=== PATIENT | male | born 1985 | race Hispanic/Latino ===

== ENCOUNTER 2016-08-18 07:56 | Emergency (ER) | payer OTHER ==
[~2016-08-18] VITALS: Ht 188 cm; Wt 104.3 kg
[~2016-08-18 07:56] MED LIST: CIPRO 500MG TA500 MG PO; ROBITUSSIN W/CO10 ML PO; ZITHROMAX Z-PA250 M1 PO
[2016-08-18 08:53] VITALS: BP 124/80
--- NOTE | 2016-08-18 10:35 | ED EYE COMPLAINT ---
History of Present Illness General Chief Complaint: Eye Problems Stated Complaint: SWOLLEN RT EYE Source: patient Exam Limitations: no limitations Vital Signs & Intake/Output Vital Signs & Intake/Output Vital Signs Date Time Temp Pulse Resp B/P Pulse O2 O2 Flow FiO2 Ox Delivery Rate 08/18 0853 98.4 83 18 124/80 99 Room Air Allergies Coded Allergies: MDX - No Known Drug Allergies - Nkd (NO KNOWN DRUG ALLERGIES - NKDA) (09/28/14) Reconcile Medications Azithromycin (Zithromax Z-Manuel) 250 MG CAP 1 DP PO AD . 2 the first day followed by 1 for days 2-5 Ciprofloxacin (Cipro) 500 MG TABLET 1 TAB PO BID FOOT PUNCTURE Polytrim (Polytrim Eye Drops) 10,000 UNIT-1 MG/ML DROPS 1 GTT OD Q6 infection 1 week Prednisolone Acetate (Pred Forte) 1 % DROPS.SUSP 1 GTT OD 4 TIMES/DAY episcleritis for 1 week, right eye Robitussin AC (Guaifenesin-Codeine Syrup) 200 MG-20 MG/10 ML LIQUID 10 ML PO Q6HR PRN COUGH Triage Note: C/O R EYE REDNESS, SWELLING, DRAIANGE SINCE LAST PM. Triage Nurses Notes Reviewed? yes HPI: PRESSURE TO R EYE LAST NIGHT, SWOLLEN R EYELID AND MILD YELLOW DISCHARGE FROM THE EYE TODAY. NO PAIN WITH EOM. NO L EYE SX. NO VISUAL CHANGE. THERE IS MODERATE SWELLING. NO FB SENSATION OR INJURY. SX ARE MODEATGE, NO FEVER, NO VISUAL CHANGE. NO CONTACTS (PATITO GALLARDO) Past History Travel History Traveled to [place] past 21 day No Medical History Any Pertinent Medical History? see below for history Neurological: NONE EENT: NONE Cardiovascular: NONE Respiratory: NONE Gastrointestinal: NONE Hepatic: NONE Renal: NONE Musculoskeletal: osteoarthritis Psychiatric: NONE Endocrine: NONE Blood Disorders: NONE Cancer(s): NONE REVENUE ANALYST/Reproductive: NONE Tetanus Vaccine: 12/05/14 Surgical History Surgical History: none Psychosocial History What is your primary language Telugu Tobacco Use: Never used ETOH Use: occasional use Family History Hx Contributory? No (PATITO GALLARDO) Review of Systems Review of Systems Constitutional: Reports: see HPI. Ear: Reports: no symptoms. Nose: Reports: no symptoms. Mouth: Reports: no symptoms. Throat: Reports: no symptoms. Respiratory: Reports: no symptoms. Cardiovascular: Reports: no symptoms. GI: Reports: no symptoms. Genitourinary: Reports: no symptoms. Musculoskeletal: Reports: no symptoms. Skin: Reports: no symptoms. Neurological/Psychological: Reports: no symptoms. Hematologic/Endocrine: Reports: no symptoms. Immunologic/Allergic: Reports: no symptoms. All Other Systems: Reviewed and Negative (PATITO GALLARDO) Physical Exam General Appearance: well developed/nourished General Inspection: normal inspection General Inspection: periorbital swelling Physical Exam Comments: Well-developed well-nourished no apparent distress. HEENT: Right-sided moderate lateral superior eyelid swelling, no significant erythema.no pain with eye motion EXtraocular motion intact Fluorescein stain to the right eyes negative, everted right superior eyelid shows no foreign body however there is swelling of the episclera and inner eyelid of the superior and lateral eyelid and the lateral aspect of the conjunctiva. No foreign body or fluorescein uptake No facial lymphadenopathy Visual acuity is normal Neck: Supple, no lymphadenopathy Back: Nontender Respiratory: No respiratory distress Extremities: No edema, full range of motion Neuro: Alert and oriented x3 Psych: Mood affect normal, normal memory normal judgment. Skin: Warm and dry, no rash on exposed skin (PATITO GALLARDO) Progress Differential Diagnosis: corneal abrasion, corneal foreign body, conjunctivitis, detached retina, glaucoma, globe rupture, retinal art./v. occlusion Plan of Care: Appears to be of episcleritis or possible bilateral conjunctivitis. We'll place on prednisone and antibiotic drops and recommend cloth stretcher follow-up this week if symptoms do not improve or if there is any worsening symptoms (PATITO GALLARDO) Departure Departure Disposition: HOME OR SELF CARE Condition: Stable Clinical Impression Primary Impression: Episcleritis of right eye Referrals: PATIENT HAS NO PRIMARY CARE DR (PCP/Family) ANANDA MOLINA,RUBIA Kwon Additional Instructions: Use the antibiotic drops and the steroid drops as directed Follow-up with cloth stretcher in 3-4 days if no better. Departure Forms: Customer Survey General Discharge Information Prescriptions: Current Visit Scripts Prednisolone Acetate (Pred Forte) 1 GTT OD 4 TIMES/DAY #5 ML for 1 week, right eye Polytrim (Polytrim Eye Drops) 1 GTT OD Q6 #10 ML 1 week (PATITO GALLARDO) PA/PARKING REGULATION ENFORCEMENT OFFICER Co-Sign Statement Statement: ED Attending supervision documentation- [] I saw and evaluated the patient. I have also reviewed all the pertinent lab results and diagnostic results. I agree with the findings and the plan of care as documented in the PA's/PARKING REGULATION ENFORCEMENT OFFICER's documentation. x I have reviewed the ED Record and agree with the PA's/PARKING REGULATION ENFORCEMENT OFFICER's documentation. [] Additions or exceptions (if any) to the PAs/PARKING REGULATION ENFORCEMENT OFFICER's note and plan are summarized below: [] (JOSSELIN MOLINA,BO)
[2016-08-18] MEDS ORDERED: PRED FORTE1 ML OD (10:48)
[2016-08-18] MEDS ORDERED: POLYTRIM EYE DR10 ML OD (10:48)
== END 2016-08-18 10:53 ==
LOC: ERH 07:56
DX: H15.101 Unspecified episcleritis, right eye (principal)